=== PATIENT | male | born 1990 | race Caucasian/White ===

== ENCOUNTER 2023-03-23 20:34 | Emergency (ER) | payer MEDICAID ==
[~2023-03-23] VITALS: Ht 188 cm; Wt 112.9 kg
[2023-03-23 21:06] VITALS: BP 127/80; PULSE 62; RESP 16; TEMP 98.2; O2SAT 98
[2023-03-23] MEDS ORDERED: KETOROLAC 60 MG/2 ML VIAL IM ONE (21:55)
[2023-03-23] MEDS ORDERED: NAPR-1717 PO (23:27)
[2023-03-23 23:30] VITALS: BP 127/80; PULSE 62; RESP 16; TEMP 98.2; O2SAT 98
== END 2023-03-23 23:30 | disposition home or self-care (01) ==
LOC: MED 20:34
DX: S13.4XXA Sprain of ligaments of cervical spine, initial encounter (principal); S33.5XXA Sprain of ligaments of lumbar spine, initial encounter; Z79.899 Other long term (current) drug therapy; V89.2XXA Person injured in unspecified motor-vehicle accident, traffic, initial encounter; Y93.89 Activity, other specified; Y92.89 Other specified places as the place of occurrence of the external cause; Y99.8 Other external cause status
CPT/HCPCS: 72050; 72100; 96372; 99284; J1885